=== PATIENT | female | born 1960 | race Two or more races ===

== ENCOUNTER 2017-12-15 08:35 | Outpatient (CLI) | payer OTHER | END 2017-12-15 15:22 | disposition home or self-care (01) | LOC: MAMO-SONO 08:35 | DX: Z12.31 Encounter for screening mammogram for malignant neoplasm of breast (principal) ==

== ENCOUNTER 2018-06-26 11:41 | Outpatient (CLI) | payer OTHER | END 2018-06-26 11:47 | disposition home or self-care (01) | LOC: RAD 11:41 | DX: M25.552 Pain in left hip (principal) ==

== ENCOUNTER 2018-06-29 11:23 | Outpatient (CLI) | payer OTHER | END 2018-06-29 11:35 | disposition home or self-care (01) | LOC: MRI 11:23 | DX: M25.552 Pain in left hip (principal) | CPT/HCPCS: 73721 ==

== ENCOUNTER 2018-11-09 10:29 | Outpatient (CLI) | payer OTHER | END 2018-11-09 10:39 | disposition home or self-care (01) | LOC: MRI 10:29 | DX: M25.512 Pain in left shoulder (principal) | CPT/HCPCS: 73221 ==

== ENCOUNTER 2018-12-23 07:37 | Outpatient (CLI) | payer OTHER | END 2018-12-23 07:43 | disposition home or self-care (01) | LOC: MAMO-SONO 07:37 | DX: Z12.31 Encounter for screening mammogram for malignant neoplasm of breast (principal); N63.10 Unspecified lump in the right breast, unspecified quadrant; N63.20 Unspecified lump in the left breast, unspecified quadrant ==

== ENCOUNTER 2021-03-26 07:40 | Outpatient (CLI) | payer OTHER | END 2021-03-26 07:53 | disposition home or self-care (01) | LOC: MAMO-SONO 07:40 | PROVIDERS: ATTEND Specialist | DX: N64.59 Other signs and symptoms in breast (principal); Z12.31 Encounter for screening mammogram for malignant neoplasm of breast; Z87.898 Personal history of other specified conditions ==

== ENCOUNTER 2023-04-07 14:07 | Outpatient (CLI) | payer OTHER | END 2023-04-07 14:25 | disposition home or self-care (01) | LOC: RAD 14:07 | PROVIDERS: ATTEND Internal Medicine Sports Medicine | DX: M25.531 Pain in right wrist (principal) ==

== ENCOUNTER → 2023-04-15 | Outpatient (CLI) | payer OTHER | END | disposition home or self-care (01) | LOC: MAMO-SONO 08:34 | PROVIDERS: ATTEND Specialist | DX: Z12.31 Encounter for screening mammogram for malignant neoplasm of breast (principal); N63.0 Unspecified lump in unspecified breast ==

== ENCOUNTER 2023-10-01 12:31 | Outpatient (CLI) | payer OTHER | END 2023-10-01 12:38 | disposition home or self-care (01) | LOC: RAD 12:31 | PROVIDERS: ATTEND Internal Medicine Sports Medicine | DX: M25.572 Pain in left ankle and joints of left foot (principal); M54.2 Cervicalgia ==

== ENCOUNTER 2024-05-31 16:13 | Outpatient (CLI) | payer OTHER | END 2024-05-31 16:16 | disposition home or self-care (01) | LOC: MAMO-SONO 16:13 | PROVIDERS: ATTEND Specialist | DX: N63.0 Unspecified lump in unspecified breast (principal); Z12.31 Encounter for screening mammogram for malignant neoplasm of breast ==

== ENCOUNTER 2024-06-16 11:41 | Outpatient (CLI) | payer OTHER | END 2024-06-16 11:51 | disposition home or self-care (01) | LOC: MRI 11:41 | PROVIDERS: ATTEND Internal Medicine Sports Medicine | DX: M25.572 Pain in left ankle and joints of left foot (principal); M25.552 Pain in left hip | CPT/HCPCS: 73721 ==

== ENCOUNTER 2025-06-21 14:05 | Outpatient (CLI) | payer OTHER | END 2025-06-21 14:07 | disposition home or self-care (01) | LOC: MAMO-SONO 14:05 | PROVIDERS: ATTEND Specialist | DX: N63.0 Unspecified lump in unspecified breast (principal); Z12.31 Encounter for screening mammogram for malignant neoplasm of breast ==